=== PATIENT | male | born 1930 | race Caucasian/White ===

== ENCOUNTER 2017-10-28 13:27 | Emergency (ER) | payer MEDICARE ==
--- NOTE | 2017-10-28 13:51 | UC ---
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 Onset/Duration: Gradual Onset, Lasting Days, Still Present Timing: Constant Current Severity: Moderate Dyspnea At: Exertion Aggrevating Factors: Movement Alleviating Factors: Nothing - Allergy/Home Medications Allergies/Adverse Reactions: Allergies Allergy/AdvReac Type Severity Reaction Status Date / Time Promethazine [From Phenergan] Allergy See Comment Verified 10/28/17 13:34 Rosiglitazone [From Avandia] Allergy See Comment Verified 10/28/17 13:34 PMH/Surg Hx/FS Hx/Imm Hx Previously Healthy: No Endocrine History: Diabetes Cardiovascular History: Cardiac Disease, Hypertension, Atrial Fibrillation GI/ History: Gastroesophageal Reflux - Surgical History Surgical History: Yes Surgery Procedure, Year, and Place: cataracts. right knee. open heart. T&A - Family History Known Family History: Positive: None - Social History Occupation: Retired Lives: With Family Alcohol Use: None Substance Use Type: None Smoking Status (MU): Former Smoker When Did the Patient Quit Smoking/Using Tobacco: ~20 years ago Review of Systems Constitutional: Negative Skin: Negative Eyes: Negative ENT: Negative Respiratory: Shortness Of Breath Cardiovascular: Negative Gastrointestinal: Negative Genitourinary: Negative Motor: Negative Neurovascular: Negative Musculoskeletal: Negative Neurological: Negative Psychological: Negative Is Patient Immunocompromised?: No All Other Systems Reviewed And Are Negative: Yes Physical Exam Triage Information Reviewed: Yes Appearance: Well-Appearing, No Pain Distress, Well-Nourished Vital Signs Reviewed: Yes Eye Exam: Normal Eyes: Positive: Conjunctiva Clear ENT Exam: Normal ENT: Positive: Normal ENT inspection, Hearing grossly normal, Pharynx normal, Tonsillar swelling, Uvula midline. Negative: Nasal congestion, Nasal drainage, TMs normal, Trismus, Muffled voice, Hoarse voice, Dental tenderness, Sinus tenderness Dental Exam: Normal Neck exam: Normal Neck: Positive: Supple, Nontender, No Lymphadenopathy Respiratory Exam: Normal Respiratory: Positive: Chest non-tender, Lungs clear, Normal breath sounds, No accessory muscle use, Other: - some sob- Cardiovascular Exam: Normal Cardiovascular: Positive: RRR, No Murmur, Pulses Normal, Brisk Capillary Refill Musculoskeletal Exam: Normal Musculoskeletal: Positive: Strength Intact, ROM Intact, No Edema Neurological Exam: Normal Neurological: Positive: Alert, Muscle Tone Normal Psychological Exam: Normal Psychological: Positive: Normal Response To Family Skin Exam: Normal Diagnostics - Radiology No standard instances Xray Interpretation: Positive (See Comments) - patchy infiltrates left lower lobe Radiology Interpretation Completed By: Radiologist - EKG Cardiac Rate: NL Cardiac Rhythm: Other Rhythm: Normal - ventricular paced Ectopy: None ST Segment: Normal Shortness of Breath Dx - Course Course Of Treatment: transfer by private car with driving to [facility] - Differential Dx/Diagnosis Provider Diagnoses: SOB - Physician Notification/Consults Discussed Patient Care With: LACHO WATERS Time Discussed With Above Provider: 14:30 Instructed by Provider To: Transfer Discharge - Discharge Plan Condition: Guarded Disposition: OTHER Discharge Disposition Comment: [facility] Patient Education Materials: Dyspnea (ED) Referrals: Simeon Aguilar MD [Primary Care Provider] - Additional Instructions: The emergency department is expecting you. Please go directly to the emergency department for further care
[2017-10-28 13:55] VITALS: BP 140/64
--- NOTE | 2017-10-28 14:24 | RAD ---
HISTORY: Cough COMPARISONS: None VIEWS: 4: Frontal dual-energy and lateral views of the chest. FINDINGS: CARDIOMEDIASTINAL SILHOUETTE: The cardiomediastinal silhouette is normal. REJI: The reji are normal. PLEURA: The costophrenic angles are sharp. No pleural abnormalities are noted. LUNG PARENCHYMA: There is patchy alveolar opacification of the left lower lung. There is postsurgical change to the left lung. ABDOMEN: The upper abdomen is clear. There is no subphrenic gas. BONES AND SOFT TISSUES: The patient is status post median sternotomy. OTHER: A left-sided pacemaker is noted. IMPRESSION: PATCHY AIRSPACE DISEASE OF THE LEFT LOWER LUNG. RECOMMEND FOLLOW-UP UNTIL RESOLUTION TO EXCLUDE UNDERLYING PULMONARY PARENCHYMAL PATHOLOGY.
== END 2017-10-28 14:44 ==
LOC: UCCORT 13:27
DX: R06.02 Shortness of breath (principal); Z87.891 Personal history of nicotine dependence
CPT/HCPCS: 71020; 93005; 99212; G0463